=== PATIENT | female | born 1985 | race Caucasian/White ===

== ENCOUNTER 2021-08-28 13:33 | Emergency (ER) | payer BC, OTHER ==
--- NOTE | 2021-08-28 14:46 | EDM.PDOC ---
ED HPI GENERAL MEDICAL PROBLEM - General Chief Complaint: Laceration Stated Complaint: LACERATION ON LEFT MIDDLE FINGER Time Seen by Provider: 08/28/21 14:35 Source of Information: Reports: Patient History Limitations: Reports: No Limitations - History of Present Illness INITIAL COMMENTS - FREE TEXT/NARRATIVE: Patient comes emergency department today from home with concerns of a laceration to the left hand. This patient was at home just prior to arrival when she was using a utility knife and sustained a very small laceration on the dorsal aspect of her left middle finger. Her tetanus immunization status is unknown. She denies any paresthesias to the left hand. No change in the functionality of her left hand. This happened just prior to arrival. - Related Data Allergies Allergy/AdvReac Type Severity Reaction Status Date / Time No Known Allergies Allergy Verified 08/28/21 14:04 Home Meds: Home Meds . [No Known Home Meds] 08/28/21 [History] Past Medical History - Past Health History Medical/Surgical History: Denies Medical/Surgical History Social & Family History - Tobacco Use Tobacco Use Status *Q: Never Tobacco User ED ROS GENERAL - Review of Systems Review Of Systems: Comprehensive ROS is negative, except as noted in HPI. ED EXAM, SKIN/RASH Exam: See Below Exam Limited By: No Limitations General Appearance: Alert, WD/WN, No Apparent Distress Respiratory/Chest: No Respiratory Distress Cardiovascular: Normal Peripheral Pulses Extremities: Normal Capillary Refill. No: Normal Inspection (On the dorsal aspect of the left third finger at the PIP joint there is a very small superficial laceration approximately half a centimeter in length. Does not extend past the superficial tissues. She is able to flex and extend at the MCP PIP and DIP joint. CMS intact appropriately. ) Neurological: Alert, Oriented ED SKIN PROCEDURES - Laceration/Wound Repair Left Dorsal Digit - 3rd (Middle) Appearance: Superficial, Clean Distal NVT: Neuro & Vascular Intact, No Tendon Injury Skin Prep: Chlorhexidine (Hibiciens), Saline Closed with: Dermabond Lac/Wound length In cm: 0.5 Tetanus Status Addressed: Yes Course - Vital Signs Last Recorded V/S: Last Vital Signs Temp 99.3 F 08/28/21 13:50 Pulse 79 08/28/21 13:50 Resp 16 08/28/21 13:50 BP 143/89 H 08/28/21 13:50 Pulse Ox 98 08/28/21 13:50 - Orders/Labs/Meds Meds: Medications Discontinued Medications Generic Name Dose Route Start Last Admin Trade Name Imer PRN Reason Stop Dose Admin Diphtheria/Tetanus/Acell Pertussis 0.5 ml 08/28/21 14:50 08/28/21 14:56 Diphtheria,Pertussis(Acell),Tetanus Vaccine 0.5 Ml Syringe IM 08/28/21 14:51 0.5 ml .ONCE ONE Administration - Re-Assessments/Exams Free Text/Narrative Re-Assessment/Exam: The laceration was cleansed and repaired with Dermabond. The tetanus immunization was verified as up-to-date by the nursing staff Departure - Departure Time of Disposition: 14:50 Disposition: Home, Self-Care 01 Clinical Impression: Laceration of finger of left hand Qualifiers: Encounter type: initial encounter Finger: middle finger Damage to nail status: without damage Foreign body presence: unspecified Qualified Code(s): S61.213A - Laceration without foreign body of left middle finger without damage to nail, initial encounter - Discharge Information Instructions: Sutures, Leslee, or Adhesive Wound Closure, [id number] Referrals: Heike Broderick MD [Primary Care Provider] - Forms: ED Department Discharge Additional Instructions: Keep the dermabond dry. Watch for signs of infection. Do not pull at the glue. It will fall off on its own. Trim the edges as needed. Recheck in the clinic as needed.
[2021-08-28] MEDS ORDERED: Diphtheria,Pertussis(Acell),Tetanus Vaccine 0.5 ML Syringe IM ONE (14:50)
== END 2021-08-28 15:00 | disposition home or self-care (01) ==
LOC: VM.ED 13:33
DX: S61.213A Laceration without foreign body of left middle finger without damage to nail, initial encounter (principal); Z23 Encounter for immunization; W26.0XXA Contact with knife, initial encounter; Y92.009 Unspecified place in unspecified non-institutional (private) residence as the place of occurrence of the external cause
CPT/HCPCS: 12001; 90471; 90715; 99282; 99282-25